=== PATIENT | female | born 1980 | race Caucasian/White ===

== ENCOUNTER 2025-02-22 13:53 | Outpatient (CLI) | payer SELFPAY ==
--- NOTE | ~2025-02-22 | US_ITS ---
US thyroid INDICATION: Nontoxic thyroid nodule TECHNIQUE: Real-time sonographic images of the thyroid gland were obtained. COMPARISON: No prior studies for comparison. FINDINGS: The right thyroid lobe measures 5.9 x 2.6 x 1.9 cm. The left thyroid lobe measures 6.3 x 2.3 x 2.4 cm. Thyroid gland is diffusely heterogeneous. There are multiple bilateral thyroid masses. Largest dominant mass in the right lobe is mostly solid, hypoechoic, wider than tall smoothly marginated measuring 1.9 x 1.2 x 1.1 cm, TR 4. Largest mass in the left lobe is mixed solid and cystic measuring 2 x 1.8 x 1.3 cm, hypoechoic, wider than tall, smoothly marginated without echogenic foci, TR 3. Normal vascular flow is present. IMPRESSION: 1. Multiple bilateral thyroid masses consistent with multinodular goiter. Recommend ultrasound-guided fine-needle aspiration of dominant right thyroid mass measuring 1.9 cm, TR 4. Reviewed, dictated and finalized at location I. [employer]ING [employer]ACH[employer]ATOR IMPRESSION: 1. Multiple bilateral thyroid masses consistent with multinodular goiter. Guillermo mmend ultrasound-guided fine-needle aspiration of dominant right thyroid mass m easuring 1.9 cm, TR 4.
== END 2025-02-22 13:54 | disposition home or self-care (01) ==
PROVIDERS: PCP Nurse Practitioner Family; Visit Provider Nurse Practitioner Family
DX: Z00.00 Encounter for general adult medical examination without abnormal findings (principal); R93.89 Abnormal findings on diagnostic imaging of other specified body structures; E04.2 Nontoxic multinodular goiter; K11.9 Disease of salivary gland, unspecified; J45.909 Unspecified asthma, uncomplicated; E04.1 Nontoxic single thyroid nodule; M50.30 Other cervical disc degeneration, unspecified cervical region; F17.210 Nicotine dependence, cigarettes, uncomplicated; Z87.898 Personal history of other specified conditions
CPT/HCPCS: 76536